=== PATIENT | male | born 1950 | race Caucasian/White ===

== ENCOUNTER → 2017-02-25 | Outpatient (CLI) | payer MEDICARE, BC ==
[~2017-02-25] MED LIST: ASPIRIN81 M2 PO; CLARITIN10 M3 PO; CLOPIDOGREL75 MG PO; COZAAR25 MG PO; DOXAZOSIN MESYLA1 MG PO; FLONASE 0.05% N16 G1; HYDROCHLOROTHIA25 MG PO; LEVOTHROID112 MCG PO; NAPROXEN PO; NIACIN1000 MG PO; NIACIN500 M2 PO; NORCO 10-325 TA1 TAB; OMEGA 3 FISH1 CAP.EC PO; SAW PALMETTO450 MG PO; SINGULAIR PO
--- NOTE | ~2017-02-25 | US136 ---
[facility] A Service of [facility] & [facility] RADIOLOGY TEXT RESULTS PATIENT: JAKE NOGUERA LOCATION: CNIV : 48 UNIT #: [id number] AGE: [address]: Bi Ramirez MD SEX: M ORDER DR: [id number] [facility] [address] [place], [place] [address] [id number] O MR#: [id number] Acc #: [id number] NAME: JAKE NOGUERA : 1950 SEX: M STUDY DATE/TIME: 02/25/2017 10:54 UNIT: CNIV ROOM: STUDY DESCRIPTION: U/L [facility] Art Study [facility] Bil Attending Physician: Bi Ramirez M.D. Referring Physician: Bi Ramirez M.D. Ordering Physician: Bi Ramirez M.D. Primary Care Physician: Rock Miramontes M.D. MEDICAL IMAGING REPORT This report is preliminary unless electronic signature is present EXAM Bilateral lower extremity CHERISE HISTORY Peripheral arterial disease. History of bypass. FINDINGS The right brachial pressure is 224, left is 204. The right dorsalis pedis pressure is 169 and posterior tibial is 145 for an CHERISE of 0.75 and a first toe pressure of 149 mmHg. The left dorsalis pedis pressure is 98, posterior tibial is 98, for an CHERISE of 0.44 and a first toe pressure of 76 mmHg. PVR waveform at the ankle level appeared to be relatively normal at the right and left ankle. Arterial waveforms show biphasic waveform at the right dorsalis pedis and posterior tibial artery and monophasic waveforms at the left dorsalis pedis and posterior tibial artery. PVR waveform at the first toes appear to be intact but slightly blunted in the right toes compared to the left. As compared to prior CHERISE study performed December 03, 2016, there has been diminishment of both the right and left lower extremity CHERISE. IMPRESSION 1. Moderate arterial insufficiency of the right lower extremity with adequate perfusion of the first toe. 2. Severe arterial insufficiency of the left lower extremity with adequate perfusion of the first toe. Dictated by... Bi Ramirez M.D. [facility] A Service of [facility] & [facility] RADIOLOGY TEXT RESULTS PATIENT: JAKE NOGUERA LOCATION: IV : 48 UNIT #: [id number] AGE: [address]: Bi Ramirez MD SEX: M ORDER DR: THIS IS AN ELECTRONICALLY VERIFIED REPORT Bi Ramirez M.D. at 02/26/2017 3:49 PM FPN/pcl TD: 02/25/2017 16:11 JOB #: [id number] MEDICAL IMAGING REPORT Page 1 of 1 COPY
--- NOTE | ~2017-02-25 | US83 ---
[facility] A Service of [facility] & [facility] RADIOLOGY TEXT RESULTS PATIENT: JAKE NOGUERA LOCATION: CNIV : 48 UNIT #: [id number] AGE: [address]: Bi Ramirez MD SEX: M ORDER DR: [id number] [facility] [address] [place], [place] [address] [id number] O MR#: [id number] Acc #: [id number] NAME: JAKE NOGUERA : 1950 SEX: M STUDY DATE/TIME: 02/25/2017 11:18 UNIT: CNIV ROOM: STUDY DESCRIPTION: US [employer] Attending Physician: Bi Ramirez M.D. Referring Physician: Bi Ramirez M.D. Ordering Physician: Bi Ramirez M.D. Primary Care Physician: Rock Miramontes M.D. MEDICAL IMAGING REPORT This report is preliminary unless electronic signature is present EXAM Right lower extremity graft surveillance ultrasound HISTORY Peripheral arterial disease. History of right lower extremity bypass. FINDINGS The right common femoral artery is the in-flow vessels and appears to be widely patent with a velocity of 118 cm/sec. Proximal profunda femoral artery is widely patent with a velocity of 114 cm/sec. The right lower extremity bypass graft appears to be widely patent from proximal through distal anastomosis with the graft appearing to be surrounded with simple fluid in the distal thigh, likely consistent with lymphocele. The proximal graft anastomotic velocity is 106 cm/sec, mid thigh graft velocity 100 cm/sec, distal thigh graft velocity 112 cm/sec, and distal anastomosis 96 cm/sec. Out flow is widely patent via the posterior tibial artery with a velocity of 37 cm/sec. IMPRESSION Widely patent right lower extremity femoral to popliteal artery bypass without evidence of stenosis or impending failure. Dictated by... Bi Ramirez M.D. THIS IS AN ELECTRONICALLY VERIFIED REPORT Bi Ramirez M.D. at 02/26/2017 3:49 PM FPN/pcl TD: 02/25/2017 16:23 [facility] A Service of [facility] & [facility] RADIOLOGY TEXT RESULTS PATIENT: JAKE NOGUERA LOCATION: CNIV : 48 UNIT #: [id number] AGE: [address]: Bi Ramirez MD SEX: M ORDER DR: JOB #: [id number] MEDICAL IMAGING REPORT Page 1 of 1 COPY
== END | disposition home or self-care (01) ==
LOC: CNIV 10:40
DX: I73.9 Peripheral vascular disease, unspecified (principal); I77.1 Stricture of artery
CPT/HCPCS: 93922; 93926

== ENCOUNTER → 2017-03-31 | Day surgery (SDC) | payer MEDICARE, BC ==
--- NOTE | ~2017-03-31 | OR ---
Unit #: [id number] #: [id number] Patient: JAKE NOGUERA [id number] [address] [place], [place] [address] [id number] O MR#: [id number] NAME: JAKE NOGUERA ROOM: Date of Procedure: 03/31/2017 Admission Date: 03/31/2017 Surgeon: Mayank Gao Jr., M.D. : 1950 Attending Physician: Mayank Gao Jr., M.D. Primary Care Physician: Rock Miramontes M.D. OPERATIVE REPORT INDICATIONS FOR PROCEDURE The patient is a 67-year-old white male with a known past history of colon polyps. His last colonoscopy was over 3 years ago. The polyps were benign and very small in the rectosigmoid area. It was felt he needed a followup colonoscopy now to rule out recurrence or enlargement of these polyps. PREOPERATIVE DIAGNOSIS Past history of benign colon polyps, rule out recurrence. POSTOPERATIVE DIAGNOSIS The patient continues to have several small 1 mm or so polyps of the rectosigmoid and sigmoid areas. ANESTHESIA MAC anesthesia. PROCEDURE PERFORMED Flexible colonoscopy to the cecum with biopsies of small polyps of the rectosigmoid area and sigmoid. DESCRIPTION OF PROCEDURE The patient was positioned in Austin position with left side down. After being given MAC anesthesia, digital rectal examination was performed, which revealed no palpable mass or tenderness. No blood or stool in the rectal ampulla. Prostate was normal by palpation. The Olympus colonoscope was advanced through the anal canal up the rectum and retroflexed down to the area of the anorectal region. There was no evidence of any fissures. No significant internal hemorrhoids. The scope was then straightened at approximately 15 cm in the rectosigmoid area, there again were several small 1 mm polyps. Several of these were biopsied without bleeding with the cold biopsy forceps. The scope was then advanced up into the sigmoid colon approximately 25 cm, there was again a small 1 to 2 mm polyp, which was biopsied and removed with one bite with the cold biopsy forceps without bleeding. The scope was then advanced around the proximal sigmoid, around the descending colon, around the splenic flexure and the transverse colon, around hepatic flexure and ascending colon, down in the area of the cecum. The light from the tip of the scope could be seen transilluminating through right lower quadrant abdominal wall area. Multiple attempts advancing the scope up the distal ileum were unsuccessful. The scope was slowly removed except for the polyps described above. There were no other major polyps. No tumors, Unit #: [id number] #: [id number] Patient: CHUCKIE,JAKE R cancer, or AVMs. No evidence of any colitis, diverticulosis, or diverticulitis. The caliber of the colon appeared normal throughout. The scope was removed. The patient tolerated the procedure well and discharged in satisfactory condition. Dictated by... Mayank Gao Jr., MKenneth. CINTHYA/chau TD: 04/01/2017 01:42 JOB #: [id number] OPERATIVE REPORT Page 1 of 1 X Mayank Gao MD X PROCEDURE OPERATIVE NOTE
== END | disposition home or self-care (01) ==
LOC: COPS 05:38
DX: Z12.11 Encounter for screening for malignant neoplasm of colon (principal); D12.5 Benign neoplasm of sigmoid colon; D12.7 Benign neoplasm of rectosigmoid junction; Z86.010 Personal history of colon polyps; J44.9 Chronic obstructive pulmonary disease, unspecified; E03.9 Hypothyroidism, unspecified; E66.9 Obesity, unspecified; I73.9 Peripheral vascular disease, unspecified; Z95.820 Peripheral vascular angioplasty status with implants and grafts; Z96.653 Presence of artificial knee joint, bilateral
CPT/HCPCS: 88305; J2250

== ENCOUNTER → 2017-06-24 | Outpatient (CLI) | payer MEDICARE, BC ==
--- NOTE | ~2017-06-24 | US83 ---
[facility] A Service of [facility] & [facility] RADIOLOGY TEXT RESULTS PATIENT: JAKE NOGUERA RAY LOCATION: CNIV : 48 UNIT #: [id number] AGE: [address]: Bi Ramirez MD SEX: M ORDER DR: [id number] [facility] [address] [place], [place] [address] [id number] O MR#: [id number] Acc #: [id number] NAME: JAKE NOGUERA : 1950 SEX: M STUDY DATE/TIME: 06/24/2017 9:14 UNIT: CNIV ROOM: STUDY DESCRIPTION: US LE [employer] Attending Physician: Bi Ramirez M.D. Referring Physician: Bi Ramirez M.D. Ordering Physician: Bi Ramirez M.D. Primary Care Physician: Rock Miramontes M.D. MEDICAL IMAGING REPORT This report is preliminary unless electronic signature is present EXAM Right lower extremity grafts venous ultrasound REASON FOR EXAM Peripheral arterial disease, history of right leg fem-pop bypass. FINDINGS The right common femoral artery is widely patent with a velocity of 141 cm/sec. The profunda femoral artery is widely patent with a velocity of 124 cm/sec. The proximal anastomosis is identified and is widely patent. The right femoral to popliteal artery bypass is also widely patent without evidence of defects. Proximal anastomotic velocity is 193 cm/sec, proximal thigh bypass 78 cm/sec, mid thigh 75 cm/sec, distal thigh 68 cm/sec and distal anastomosis 147 cm/sec. Outflow via the posterior tibial artery is widely patent with a velocity of 27 cm/sec. IMPRESSION Widely patent right [id number] artery bypass without evidence of stenosis. Dictated by... Bi Ramirez M.D. THIS IS AN ELECTRONICALLY VERIFIED REPORT Bi Ramirez M.D. at 06/25/2017 10:40 AM Parag TD: 06/24/2017 22:10 JOB #: [id number] [facility] A Service of [facility] & [facility] RADIOLOGY TEXT RESULTS PATIENT: JAKE NOGUERA LOCATION: CNIV : 48 UNIT #: [id number] AGE: [address]: Bi Ramirez MD SEX: M ORDER DR: MEDICAL IMAGING REPORT Page 1 of 1 COPY
--- NOTE | ~2017-06-24 | US136 ---
[facility] A Service of [facility] RADIOLOGY TEXT RESULTS PATIENT: JAKE NOGUERA RAY LOCATION: CNIV : 48 UNIT #: [id number] AGE: [address]: Bi Ramirez MD SEX: M ORDER DR: [id number] [facility] [address] [place], [place] [address] [id number] O MR#: [id number] Acc #: [id number] NAME: JAKE NOGUERA : 1950 SEX: M STUDY DATE/TIME: 06/24/2017 8:58 UNIT: CNIV ROOM: STUDY DESCRIPTION: U/L Ext Art Study [facility] Bil Attending Physician: Bi Ramirez M.D. Referring Physician: Bi Ramirez M.D. Ordering Physician: Bi Ramirez M.D. Primary Care Physician: Rock Miramontes M.D. MEDICAL IMAGING REPORT This report is preliminary unless electronic signature is present DATE OF EXAM 06/24/2017 REASON FOR EXAM Peripheral arterial disease. History of right leg bypass. EXAM Bilateral lower extremity CHERISE. FINDINGS The right brachial pressure is 166, left is 171. Right dorsalis pedis pressure is 146 and posterior tibial 142, for an CHERISE of 0.85 and a first toe pressure of 141 mmHg. Left dorsalis pedis pressure is 99, post-tibial is 89, for an CHERISE of 0.58 and a first toe pressure of 61 mmHg. PVR waveform at the ankle level and first toe level appear to be intact bilateral. Arterial waveforms of the dorsalis pedis and posterior tibial arteries demonstrate triphasic waveform at the right dorsalis pedis artery and biphasic at the right posterior tibial artery. There are biphasic waveform at the left dorsalis pedis artery and monophasic on the left posterior tibial artery. IMPRESSION 1. Mild arterial insufficiency of the right lower extremity with adequate perfusion of the first toe. 2. Moderate arterial insufficiency of the left lower extremity with adequate but diminished perfusion of the left first toe. Dictated by... Bi Ramirez M.D. [facility] A Service of [facility] & [facility] RADIOLOGY TEXT RESULTS PATIENT: JAKE NOGUERA RAY LOCATION: CNIV : 48 UNIT #: [id number] AGE: [address]: Bi Ramirez MD SEX: M ORDER DR: THIS IS AN ELECTRONICALLY VERIFIED REPORT Bi Ramirez M.D. at 06/25/2017 10:39 AM NEMO/aggie TD: 06/24/2017 21:43 JOB #: [id number] MEDICAL IMAGING REPORT Page 1 of 1 COPY
== END | disposition home or self-care (01) ==
LOC: CNIV 08:51
DX: I73.9 Peripheral vascular disease, unspecified (principal); I89.8 Other specified noninfective disorders of lymphatic vessels and lymph nodes; Z95.828 Presence of other vascular implants and grafts
CPT/HCPCS: 93922; 93926